=== PATIENT | male | born 1990 | race Two or more races ===

== ENCOUNTER 2016-04-12 21:18 | Emergency (ER) | payer SELFPAY ==
[~2016-04-12] VITALS: Ht 170.2 cm; Wt 90.7 kg
[~2016-04-12 21:18] MED LIST: IBUPROFEN600 MG ORAL
[2016-04-12 22:31] LABS: BASOPHILS % (AUTO) 1.1 % (0.0-2.0); EOSINOPHILS % (AUTO) 1.8 % (0.0-3.0); LYMPHOCYTES % (AUTO) 35.9 % (20.0-45.0); MEAN CORPUSCULAR HEMOGLOBIN 27.8 PG (27.0-31.0); MEAN CORPUSCULAR HGB CONC 33.6 G/DL (32.0-36.0); MEAN CORPUSCULAR VOLUME 83 FL (80-99); MEAN PLATELET VOLUME 6.4 FL (6.5-10.1); MONOCYTES % (AUTO) 10.4 % (1.0-10.0); NEUTROPHILS % (AUTO) 50.9 % (45.0-75.0); PLATELET COUNT 260 K/UL (150-450); RED BLOOD COUNT 5.88 M/UL (4.70-6.10); RED CELL DISTRIBUTION WIDTH 11.2 % (11.6-14.8); WHITE BLOOD COUNT 5.6 K/UL (4.8-10.8)
[2016-04-12 22:49] LABS: ANION GAP 15 (5-15); CALCIUM 9.7 mg/dL (8.6-10.2); CARBON DIOXIDE 27 mEQ/L (20-30); CHLORIDE 96 mEQ/L (98-107); CREATININE 0.8 mg/dL (0.7-1.2); GLOMERULAR FILTRATION RATE > 60 mL/min (>60); HEMOLYSIS 22; POTASSIUM 3.7 mEQ/L (3.4-4.9); SODIUM 138 mEQ/L (135-145)
[2016-04-12 23:02] VITALS: BP 139/59
--- NOTE | 2016-04-12 23:56 | Emergency Room Report ---
History of Present Illness General Chief Complaint: Pain Source: Patient Present Illness HPI Is a 25-year-old male with no past history. He presents with swelling to his left jaw. Onset this morning. He said that he felt a knot there. He had to go to her job and could not come in. Throughout the day it swell up more. Denies any fever or chills denies any dental pain. No nausea no vomiting. Nothing made it better. Nothing made it worse. Allergies: Coded Allergies: No Known Allergies (Unverified , 10/21/14) Patient History Past Medical History: none Past Surgical History: none Pertinent Family History: none Social History: Denies: drug use Immunizations: other Reviewed Nursing Documentation: PMH: Agreed, PSxH: Agreed Nursing Documentation-PMH Past Medical History: No Stated History Review of Systems Eye: Denies: blurred vision, eye pain ENT: Denies: ear pain, nose congestion, throat swelling Respiratory: Denies: cough, shortness of breath Cardiovascular: Denies: chest pain, palpitations Gastrointestinal: Denies: abdominal pain, diarrhea, nausea, vomiting Musculoskeletal: Denies: back pain, joint pain Skin: Denies: rash Neurological: Denies: headache, numbness Endocrine: Denies: increased thirst, increased urine Hematologic/Lymphatic: Denies: easy bruising All Other Systems: negative except mentioned in HPI Physical Exam Vital Signs Date Time Temp Pulse Resp B/P Pulse Ox O2 Delivery O2 Flow Rate FiO2 04/12/16 21:36 98.2 91 14 143/55 100 Room Air vitals normal Sp02 EP Interpretation: reviewed, normal General Appearance: well appearing, no apparent distress, alert, obese Head: normocephalic, atraumatic Eyes: bilateral eye EOMI, bilateral eye PERRL ENT: hearing grossly normal, normal pharynx, other - There is a left submental swelling. Mild tenderness. No warmth. No redness. I did not palpate any calcified stone in the oropharynx. No dental tenderness. Neck: full range of motion, supple, no meningismus Respiratory: chest non-tender, lungs clear, normal breath sounds Cardiovascular #1: regular rate, rhythm, no murmur Gastrointestinal: normal bowel sounds, non tender, no mass, no organomegaly, no bruit, non-distended Musculoskeletal: back normal, gait/station normal, normal range of motion Neurologic: alert, oriented x3 Psychiatric: mood/affect normal Skin: warm/dry Medical Decision Making Diagnostic Impression: Primary Impression: Sialoadenitis of submandibular gland ER Course Patient presents with inflammation of the submandibular gland. May be secondary to infection versus obstruction. I do not palpate any mass. No evidence of abscess. We'll discharge home with antibiotics. He may need ENT referral. Lab Results Impression labs normal CT/MRI/US Diagnostic Results CT/MRI/US Diagnostic Results : Imaging Test Ordered: CT neck Impression Read by radiologist. Enlarged left submandibular gland. Prominent pontine tonsil. Last Vital Signs Date Time Temp Pulse Resp B/P Pulse Ox O2 Delivery O2 Flow Rate FiO2 04/12/16 23:02 98.1 93 15 139/59 99 Room Air Status: improved Disposition: HOME, SELF-CARE Condition: Stable Scripts Ibuprofen* (MOTRIN*) 600 Mg Tablet 600 MG ORAL THREE TIMES A DAY, #30 TAB 0 Refills Prov: CONCHA NIELSEN M.D. 04/13/16 Amoxicillin/Potassium Clav 875-125* (AUGMENTIN 875-125 TABLET*) 1 Each Tablet 1 TAB ORAL TWICE A DAY, #14 TAB Prov: CONCHA NIELSEN M.D. 04/13/16 Referrals: NOT CHOSEN [facility]/,REFERRING (PCP) Additional Instructions: Followup your DrHilda in 7 days. Increase sour food. May suck on lemon drops. May need ENT referral if not better. CONCHA NIELSEN M.D. Apr 12, 2016 23:56
[2016-04-13] MEDS ORDERED: AUGMENTIN 875-1 EAC1 ORAL (00:32)
[2016-04-13] MEDS ORDERED: IBUPROFEN600 MG ORAL (00:32)
[2016-04-13 01:01] VITALS: BP 126/72
[2016-04-13 01:07] VITALS: BP 126/72
--- NOTE | 2016-04-13 10:10 | Diagnostic Imaging Report ---
Indications: Left facial swelling, submandibular area redness Technique: Spiral acquisitions obtained through the brain. Angled axial and coronal 5 x 5 mm slices were reconstructed. Total dose length product 682 mGycm. CTDI vol(s) 8, 73, 19 mGy Comparison: None Findings: There is diffuse enlargement of the left submandibular gland. This does not appear to be associated with an increase in vascularity. There is questionably a 3 mm calcification, which is immediately adjacent to the hyoid bone and therefore not optimally demonstrated. No definite ductal dilatation is evident. There is some infiltration of the surrounding fat. There is prominence to the submental lymph nodes as well as lymph nodes adjacent to the submandibular gland. A few other calcifications are seen adjacent to the tonsils bilaterally, on not in location expected to be associated with salivary ducts. No cervical mass or adenopathy otherwise. Bilateral parotid glands appear unremarkable. The included sinuses are clear. The included intracranial structures are unremarkable. The optic globes and retroseptal orbits are unremarkable. The oropharynx, hypopharynx, nasopharynx, larynx, and trachea the included upper mediastinum and included lung apices are unremarkable. The upper esophagus is unremarkable. The thyroid is unremarkable. Are unremarkable. Impression: Swelling of the left submandibular gland, with infiltration of the surrounding fat. This is consistent with sialadenitis, nonspecific as regards etiology. There is a calcification adjacent to the hyoid which could conceivably be a salivary duct stone, but the location is not typical coarse and and there is no definite ductal dilatation. Mildly prominent regional lymph nodes, presumably reactive Negative for evidence of abscess This agrees with the preliminary interpretation provided overnight by [facility]erad[facility] service. The CT scanner at [facility] is accredited by the [employer] and the scans are performed using protocols designed to limit radiation exposure to as low as reasonably achievable to attain images of sufficient resolution adequate for diagnostic evaluation.
== END 2016-04-13 01:07 | disposition home or self-care (01) ==
LOC: EMR 22:10
DX: K11.20 Sialoadenitis, unspecified (principal)
CPT/HCPCS: 36415; 70491; 80048; 85025; 99284; Q9967

== ENCOUNTER 2017-10-02 01:08 | Emergency (ER) | payer OTHER ==
[~2017-10-02] VITALS: Ht 170.2 cm; Wt 90.7 kg
[~2017-10-02 01:08] MED LIST changes: +AUGMENTIN 875-1 EAC1 ORAL
[2017-10-02] MEDS ORDERED: Norco 5mg/325mg tab ORAL ONE (01:30)
[2017-10-02] MEDS ORDERED: IBUPROFEN600 MG ORAL (01:55)
[2017-10-02] MEDS ORDERED: HYDROCODON-ACE1 EA15 ORAL (01:55)
--- NOTE | 2017-10-02 01:55 | Emergency Room Report ---
History of Present Illness General Chief Complaint: Lower Extremity Injury Source: Patient Present Illness HPI Is a 27-year-old male with no significant past medical history. He presents with chief complaint of left ankle pain. 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 He was clammy onto his truck, when he felt a pop and severe pain to his left ankle area. He came down on it. Unable to bear weight because of the pain. He was able to drive himself here. Pain is 9 out of 10. Worse with movement. Worse with palpation of his calf. No other injury. Did not pass out. Did not hit his head. Did not fall prior to the pain. Allergies: Coded Allergies: No Known Allergies (Unverified , 10/21/14) Patient History Past Medical History: see triage record, old chart reviewed Past Surgical History: none Pertinent Family History: none Social History: Denies: smoking Immunizations: other Reviewed Nursing Documentation: PMH: Agreed; PSxH: Agreed Nursing Documentation-PMH Hx Asthma: Yes Review of Systems Eye: Denies: eye pain, blurred vision ENT: Denies: ear pain, nose congestion, throat swelling Respiratory: Denies: cough, shortness of breath Cardiovascular: Denies: chest pain, palpitations Gastrointestinal: Denies: abdominal pain, diarrhea, nausea, vomiting Musculoskeletal: Reports: joint pain; Denies: back pain Skin: Denies: rash Neurological: Denies: headache, numbness Endocrine: Denies: increased thirst, increased urine Hematologic/Lymphatic: Denies: easy bruising All Other Systems: negative except mentioned in HPI Physical Exam Vital Signs Date Time Temp Pulse Resp B/P (MAP) Pulse Ox O2 Delivery O2 Flow Rate FiO2 10/02/17 01:27 98.1 80 16 139/99 98 Room Air 98.1 vitals unremarkable Sp02 EP Interpretation: reviewed, normal General Appearance: well appearing, no apparent distress, alert Head: normocephalic, atraumatic Eyes: bilateral eye PERRL, bilateral eye EOMI ENT: hearing grossly normal, normal pharynx Neck: full range of motion, supple, no meningismus Respiratory: chest non-tender, lungs clear, normal breath sounds Cardiovascular #1: regular rate, rhythm, no murmur Gastrointestinal: normal bowel sounds, non tender, no mass, no organomegaly, no bruit, non-distended Musculoskeletal: back normal, normal range of motion, other - Left ankle: He has tenderness to the Achilles tendon area. Tenderness of the Achilles with palpation of the calf. There is some mild deformity to the Achilles tendon but still able to fill part of the tendon. Neurologic: alert, oriented x3 Psychiatric: mood/affect normal Skin: warm/dry Procedures Splinting Splinting : Consent: Verbal Location: Left ankle Hand-Made Type: plaster Splint: poserior short Pre-Proc Neuro Vasc Exam: normal Post-Proc Neuro Vasc Exam: normal Patient Tolerated: Well Complications: None Progress Patient had a left short-leg posterior splint placed in Equis position. Post- splint check his neurovascular intact. Crutches given. Medical Decision Making Diagnostic Impression: Primary Impression: Achilles tendon tear Qualified Codes: S86.012A - Strain of left Achilles tendon, initial encounter ER Course Patient presents with most likely partial tear of his left Achilles tendons. Patient splinted and put on crutches. Will need outpatient follow-up with orthopedic doctor. May need MRI. No evidence of septic joint. No evidence of fracture or dislocation. Other X-Ray Diagnostic Results Other X-Ray Diagnostic Results : X-Ray ordered: X-rays left ankle # of Views/Limited Vs Complete: 3 View Indication: Pain EP Interpretation: Yes Interpretation: no dislocation, no soft tissue swelling, no fractures Impression: No acute disease Electronically Signed by: Robin Skelton MD Last Vital Signs Date Time Temp Pulse Resp B/P (MAP) Pulse Ox O2 Delivery O2 Flow Rate FiO2 10/02/17 01:34 98.1 10/02/17 01:27 80 16 139/99 98 Room Air Status: improved Disposition: HOME, SELF-CARE Condition: Stable Scripts Ibuprofen* (MOTRIN*) 600 Mg Tablet 600 MG ORAL THREE TIMES A DAY, #30 TAB 0 Refills Prov: ROBIN SKELTON M.D. 10/02/17 Hydrocodone/Acetaminophen 5-325* (HYDROCODONE/ACETAMINOPHEN 5-325*) 1 Each Tablet 1 TAB ORAL Q6H PRN for For Pain, #15 TAB 0 Refills Prov: ROBIN SKELTON M.D. 10/02/17 Additional Instructions: Nonweightbearing. Elevate leg. Ice pack to the area. Follow up with Worker's CompHilda Lion in one to 2 days. You may need an MRI. Return if symptom worsen. ROBIN SKELTON M.D. Oct 02, 2017 01:55
[2017-10-02 02:32] VITALS: BP 139/99
--- NOTE | 2017-10-02 12:01 | Diagnostic Imaging Report ---
Indication: Pain Technique: XRAY Ankle Compl Min 3v L Comparison: None Findings: There is no acute fracture. Ankle mortise is intact on these nonstress views. Imaged bony hindfoot grossly unremarkable. There is abnormal appearance of Kager's triangle, with abnormal soft tissue density in the expected apex of the triangle. Correlate clinically for possible ligamentous/tendinous injury. IMPRESSION: No evidence of acute fracture. Subtle radiographic abnormality in Kager's angle. Correlate with physical exam to assess for ligamentous/tendinous injury. Consider MRI of the ankle. This corresponds with the preliminary interpretation of the treating ER clinician, as documented in the electronic medical record.
== END 2017-10-02 02:32 | disposition home or self-care (01) ==
LOC: EMR 01:59
DX: S86.012A Strain of left Achilles tendon, initial encounter (principal); X50.1XXA Overexertion from prolonged static or awkward postures, initial encounter; Y93.I9 Activity, other involving external motion; Y92.89 Other specified places as the place of occurrence of the external cause; Y99.0 Civilian activity done for income or pay
CPT/HCPCS: 29515; 99283

== ENCOUNTER 2019-02-11 17:49 | Emergency (ER) | payer SELFPAY ==
[~2019-02-11] VITALS: Ht 170.2 cm; Wt 90.7 kg
[~2019-02-11 17:49] MED LIST changes: +HYDROCODON-ACE1 EA15 ORAL
[2019-02-11 17:59] VITALS: BP 124/86
--- NOTE | 2019-02-11 18:01 | NUR ---
ED Nurse Note: Pt walked into ED w/ c/o R ear pain 6/10 since last night. Pt states he can barely hear out of R ear. Pt states he has had SANCHES 6/10 pain, coughing, sneezing also since last night. No acute distress.
--- NOTE | 2019-02-11 18:01 | NUR ---
ED Nurse Note: Patient walked in to ER c/o right ear ache since yesterday. VSS at this time, skin is warm to touch. Patient presented calm, AAO x4.
--- NOTE | 2019-02-11 18:44 | Emergency Room Report ---
History of Present Illness General Chief Complaint: Earache Source: Patient Present Illness HPI 28 YO Male presents to the ED c/o 9/10 Right ear pain. x 2 days. he repors fever and chills subjectively. Pt. reports he has been around a sick toddler lately and previously had URI with nasal congestion. Pt. reports ear pain is new. Denies ear trauma, d/c, q-tip use, bleeding, or external ear tenderness. He denies swollen tender lymph nodes. Denies neck pain, ST, COugh, SOB, CP or SANCHES. Allergies: Coded Allergies: No Known Allergies (Unverified , 10/21/14) Patient History Past Medical History: see triage record Past Surgical History: none Pertinent Family History: none Reviewed Nursing Documentation: PMH: Agreed; PSxH: Agreed Nursing Documentation-PMH Past Medical History: No History, Except For Hx Asthma: Yes Review of Systems All Other Systems: negative except mentioned in HPI Physical Exam Vital Signs Date Time Temp Pulse Resp B/P (MAP) Pulse Ox O2 Delivery O2 Flow Rate FiO2 02/11/19 17:55 97.7 94 20 124/86 (99) 96 Room Air Sp02 EP Interpretation: reviewed, normal General Appearance: no apparent distress, alert, GCS 15, non-toxic Head: normocephalic, atraumatic Eyes: bilateral eye normal inspection, bilateral eye PERRL ENT: hearing grossly normal, normal pharynx, normal voice, TMs + canals normal , uvula midline, moist mucus membranes, nasal congestion, other - RIght TM is erythematous and bulging. Neck: full range of motion, no meningismus, no bony tend Respiratory: lungs clear, normal breath sounds, speaking full sentences Cardiovascular #1: regular rate, rhythm Gastrointestinal: non tender, soft Musculoskeletal: normal range of motion, gait/station normal, non-tender Neurologic: alert, motor strength/tone normal, oriented x3, sensory intact, responsive, speech normal Psychiatric: judgement/insight normal Lymphatic: no adenopathy Medical Decision Making PA Attestation Dr. Wilkes Is my supervising Physician whom patient management has been discussed with. Diagnostic Impression: Primary Impression: Otitis media Qualified Codes: H66.91 - Otitis media, unspecified, right ear ER Course 28 YO Male presents to the ED c/o 9/10 Right ear pain. x 2 days. he repors fever and chills subjectively. Pt. reports he has been around a sick toddler lately and previously had URI with nasal congestion. Pt. reports ear pain is new. Denies ear trauma, d/c, q-tip use, bleeding, or external ear tenderness. He denies swollen tender lymph nodes. Denies neck pain, ST, COugh, SOB, CP or SANCHES. Ddx considered but are not limited to OM, OE, mastoiditis, TM perforation, FB Vital signs: are WNL, pt. is afebrile H&PE are most consistent with Right otitis media ORDERS: none required at this time, the diagnosis is clinical -OTOSCOPY: Right TM is erythematous and bulging ED INTERVENTIONS: None required at this time. DISCHARGE: At this time pt. is stable for d/c to home. With PO ABX. Will provide printed patient care instructions, and any necessary prescriptions. Care plan and follow up instructions have been discussed with the patient prior to discharge. Last Vital Signs Date Time Temp Pulse Resp B/P (MAP) Pulse Ox O2 Delivery O2 Flow Rate FiO2 02/11/19 17:59 97.7 20 124/86 96 Room Air 02/11/19 17:55 94 Disposition: HOME, SELF-CARE Condition: Stable Scripts Acetaminophen* (TYLENOL EXTRA STRENGTH*) 500 Mg Tablet 500 MG ORAL Q6H PRN for Mild Pain/Temp > 100.5, #20 TAB 0 Refills Prov: Irene Salas 02/11/19 Amoxicillin/Potassium Clav 875-125* (AUGMENTIN 875-125 TABLET*) 1 Each Tablet 1 TAB ORAL TWICE A DAY for 10 Days, #20 TAB Prov: Irene Salas 02/11/19 Departure Forms: Return to Work Return to Work Date: Feb 14, 2019 Work Restrictions: None Other Restrictions: May return Sooner if Symptoms have resolved. Return to Full Activity: Feb 14, 2019 Patient Instructions: Otitis Media, Adult, [id number] Additional Instructions: Take medications as directed. Follow up with a Primary Care Provider in 3-5 days, even if your symptoms have resolved. --Please review list of primary care clinics, if you do not already have a primary care provider Return sooner to ED if new symptoms occur, or current symptoms become worse. - Please note that this Emergency Department Report was dictated using [employer] technology software, occasionally this can lead to erroneous entry secondary to interpretation by the dictation equipment. Irene Salas Feb 11, 2019 18:44
[2019-02-11] MEDS ORDERED: TYLENOL EXTRA500 MG ORAL (18:45)
[2019-02-11] MEDS ORDERED: AUGMENTIN 875-1 EAC1 ORAL (18:45)
--- NOTE | 2019-02-11 18:52 | NUR ---
ER DISCHARGE NOTE: Patient is cleared to be discharged per ERMD, pt is aox4, on room air, with stable vital signs. pt was given dc and prescription instructions, pt was able to verbalize understanding, pt id band removed. pt is able to ambulate with steady gait. pt took all belongings.
[2019-02-11 18:53] VITALS: BP 120/86
== END 2019-02-11 18:53 | disposition home or self-care (01) ==
LOC: EMR 18:46
DX: H66.91 Otitis media, unspecified, right ear (principal)
CPT/HCPCS: 99282